=== PATIENT | male | born 1940 | race Caucasian/White ===

== ENCOUNTER 2017-06-30 06:19 | Day surgery (SDC) | payer MEDICARE, OTHER ==
[~2017-06-30] VITALS: Ht 177.8 cm; Wt 69.1 kg
--- NOTE | ~2017-06-30 | OP ---
PATIENT NAME: Scarlett RUIZ MEDICAL RECORD: [id number] :44 LOCATION:D.OPS ADMISSION DATE: SURGEON: ISMAEL LANGLEY DO DATE OF OPERATION: 06/30/2017 PROCEDURE: Colonoscopy with polypectomy. INDICATION FOR PROCEDURE: Screening colonoscopy, history of colon polyps, diverticular disease. SCOPE: Olympus video pediatric colonoscope. MEDICATIONS: Propofol 500 mg IV per anesthesia. WITHDRAWAL TIME: 27 minutes. ESTIMATED BLOOD LOSS: Minimal. COMPLICATIONS: None. FINDINGS: Informed consent was given. The patient was made comfortable with the above medication. After reaching an adequate level of sedation by slow IV push, the patient was placed on his left side. A digital rectal examination was performed and was normal. The endoscope was then advanced under direct visualization through the rectum to the cecum with visualization of the appendiceal orifice and the ileocecal valve. The scope was slowly withdrawn and mucosa was carefully examined. The prep quality was fair. There were 4 polyps visualized on today's examination. The first was a benign-appearing and sessile polyp located in the cecum. It measured approximately 2 mm in diameter. It was removed using cold forceps in one piece and completely retrieved. In the transverse colon, there were 2 separate polyps which were benign appearing and sessile. They ranged in size from 3-5 mm in diameter. One was removed using a hot snare and the other was removed using hot forceps. In the descending colon, there was another benign-appearing and sessile polyp which measured approximately 4 mm in diameter. It was removed using hot forceps in one piece and completely retrieved. There was evidence of diverticula throughout the entire colon. Retroflexion was performed in the rectum with visualization of grade I internal hemorrhoids without bleeding. The endoscope was then withdrawn from the patient. The patient tolerated the procedure well and there were no complications. IMPRESSION: 1. Multiple polyps as described above, removed using a combination of cold forceps, hot forceps, and a hot snare. 2. Pandiverticulosis. 3. Grade I internal hemorrhoids without bleeding. PLAN AND RECOMMENDATIONS: 1. Discharge home when recovery parameters are met. 2. Followup biopsy specimen results. 3. High-fiber diet. 4. Continue current medications. 5. Recall colonoscopy in 3 years. TRANSINT:[id number] Voice Confirmation ID: [id number] DOCUMENT ID: [id number] OPERATIVE REPORT [id number] MEDICA,ISMAEL PAUL DO at 1524 CC: [id number] DICTATION DATE: 06/30/17913 CERTIFIED SURGICAL TECH/FIRST ASSISTANT: 06/30/17 1148 [facility] 06/30/17 [id number] [place] [address]
[2017-06-30] MEDS ORDERED: PROSCAR5 MG PO (06:43)
[2017-06-30] MEDS ORDERED: FUROSEMIDE40 MG PO (06:44)
[2017-06-30] MEDS ORDERED: RENVELA800 MG PO (06:44)
[2017-06-30] MEDS ORDERED: LISINOPRIL5 MG PO (06:45)
[2017-06-30 06:58] VITALS: BP 159/63; Ht 177.8 cm; Wt 69.1 kg
[2017-06-30 07:08] LABS: HEMATOCRIT 43.6 % (42.0-54.0); HEMOGLOBIN 13.8 g/dL (13.5-17.5); MCH 31.3 pg (26.0-34.0); MCHC 31.7 g/dL (31.0-37.0); MCV 98.9 fL (80.0-100.0); MEAN PLATELET VOLUME 11.3 fL (7.4-10.4); RBC 4.41 10x6/uL (4.20-6.10); RDW 13.7 % (11.5-14.5); WBC 6.8 10x3/uL (4.8-10.8)
[2017-06-30 07:09] LABS: ANION GAP 16.6 mmol/L (8-16); CALCIUM 8.5 mg/dL (8.5-10.1); CARBON DIOXIDE 23.2 mmol/L (21.0-32.0); CREATININE - SERUM 6.8 mg/dL (0.6-1.3); POTASSIUM - SERUM 3.8 mmol/L (3.5-5.1)
== END 2017-06-30 10:12 | disposition home or self-care (01) ==
LOC: D.OPS 06:19
PROVIDERS: Anesthesiology
DX: Z12.11 Encounter for screening for malignant neoplasm of colon (principal); K63.5 Polyp of colon; K57.30 Diverticulosis of large intestine without perforation or abscess without bleeding; K64.0 First degree hemorrhoids; Z86.010 Personal history of colon polyps; Z01.812 Encounter for preprocedural laboratory examination

== ENCOUNTER → 2018-09-07 14:41 | Outpatient (CLI) | payer MEDICARE, OTHER ==
[2017-06-30 06:58] VITALS: BMI 21.8
[~2018-09-07 14:41] MED LIST: FUROSEMIDE40 MG PO; LISINOPRIL5 MG PO; PROSCAR5 MG PO; RENVELA800 MG PO
== END | disposition home or self-care (01) ==
LOC: D.RAD 14:41
PROVIDERS: ATTEND Internal Medicine Nephrology
DX: R06.02 Shortness of breath (principal)

== ENCOUNTER → 2019-02-01 07:32 | Outpatient (CLI) | payer MEDICARE, OTHER ==
[2017-06-30 06:58] VITALS: BMI 21.8
== END | disposition home or self-care (01) ==
LOC: D.NM 07:32
PROVIDERS: ATTEND Internal Medicine Nephrology
DX: R93.89 Abnormal findings on diagnostic imaging of other specified body structures (principal); R11.2 Nausea with vomiting, unspecified

== ENCOUNTER → 2019-03-08 13:52 | Outpatient (CLI) | payer MEDICARE, OTHER ==
[2017-06-30 06:58] VITALS: BMI 21.8
== END | disposition home or self-care (01) ==
LOC: D.RAD 13:52
PROVIDERS: ATTEND Internal Medicine Nephrology
DX: R06.02 Shortness of breath (principal); R05 Cough

== ENCOUNTER → 2019-03-25 09:56 | Outpatient (CLI) | payer MEDICARE, OTHER ==
[2017-06-30 06:58] VITALS: BMI 21.8
--- NOTE | ~2019-03-25 | ST ---
PATIENT:Scarlett RUIZ MEDICAL RECORD: [id number] SEX: M LOCATION:[facility] ORDER #: ADMISSION DATE: 03/25/19 AGE OF PATIENT: 79 REFERRING PHYSICIAN: INTERPRETING PHYSICIAN: LUCIA KAPLAN MD DATE OF SERVICE: 03/25/2019 PROCEDURE: Nuclear stress test. INDICATION: Angina, abnormal ECG, hypertension, shortness of breath, lower extremity edema. The patient was exercised on standard Lexiscan protocol with 33 mCi of sestamibi injected at peak stress, 11 mCi used previously for rest images. FINDINGS: Gated SPECT reveals a dilated cardiomyopathy, ejection fraction markedly reduced at 21%. SPECT imaging: Cardiolite was used as myocardial perfusion agent. There is a fixed perfusion defect inferiorly compatible with previous inferior myocardial infarction; however, there is ongoing reversible ischemia anteriorly and laterally. This includes the basal, mid, apical, anterior segments as well as apical lateral, mid lateral, basal lateral segments. The degree of reversibility is moderate. The amount of myocardial involved is a very large between the defects. OVERALL IMPRESSION: This is an abnormal nuclear stress test showing a previous inferior myocardial infarction, but ongoing ischemia anteriorly and laterally suggestive of multivessel coronary artery disease. TRANSINT:[id number] Voice Confirmation ID: [id number] DOCUMENT ID: [id number] LUCIA KAPLAN MD CC: [id number] DICTATION DATE: 03/26/19 1520 COMPUTER ARCHITECT: 03/27/19 0750 DEP CLI 03/25/19 [facility] [address] [place] [address]
== END | disposition home or self-care (01) ==
LOC: D.HCCECHO 09:56
PROVIDERS: ATTEND Internal Medicine Interventional Cardiology
DX: I25.119 Atherosclerotic heart disease of native coronary artery with unspecified angina pectoris (principal)

== ENCOUNTER 2019-04-07 10:02 | Outpatient (CLI) | payer MEDICARE, OTHER ==
[~2019-04-07] VITALS: Ht 177.8 cm; Wt 68.2 kg
--- NOTE | ~2019-04-07 | HEMODYNAMI ---
PATIENT:Scarlett RUIZ MEDICAL RECORD: [id number] : 44 LOCATION:[facility] ADMISSION DATE: 04/07/19 Generatedon:04/07/201914:40 Patient name: Scarlett RUIZ Patient #: [id number] SSN: [id number] : 1940 Date of study: 04/07/2019 Page: Of Hemodynamic Procedure Report Patient Data Patient Demographics Procedure consent was obtained First Name: Scarlett Gender: Male Last Name: JOSEPH : 1940 Middle Initial: JAVIER Age: 79 year(s) Patient #: [id number] Race: Unknown SSN: [id number] Additional ID: [id number] Contact details [address]: [address] [place] [address] State: [place] City: [place] Zip code: [address] Past Medical History Allergies: No known allergies Admission Admission Data Admission Date: 04/07/2019 Admission Time: 10:02 Arrival Date: 04/07/2019 Arrival Time: 0:00 Admit Source: Other Insurance Payor: Private health insurance, Medicare [facility] #: [id number] Height (in.): 69.69 BSA: 1.84 (m2) Height (cm.): 177 BMI: 21.71 (kg/m2) Weight (lbs.): 149.92 Weight (kg.): 68 Lab Results Lab Result Date: 04/07/2019 Lab Result Time: 0:00 Biochemistry Name Units Result Min Max BUN mg/dl 20 --(----)*- 7 18 Creatinine mg/dl 3.2 --(----)-* 0.6 1.3 CBC Name Units Result Min Max Hemoglobin g/dl 11.1 *-(----)-- 13.5 17.5 Procedure Procedure Types Cath Procedure Diagnostic Procedure LHC LH w/Coronaries Sedation Charges Moderate Sedation up to 15 minutes Procedure Description Procedure Date Procedure Date: 04/07/2019 Procedure Start Time: 14:28 Procedure End Time: 14:37 Procedure Staff Name Function Channing Giles MD Performing Physician Alessandra Waggoner RT Monitor Nilam Hancock RN Nurse Sharon Abdi RT Scrub Indication Dyspnea Procedure Data Cath Procedure Fluoroscopy Diagnostic fluoroscopy Total fluoroscopy Time: 0 time: 0 min min Diagnostic fluoroscopy Total fluoroscopy dose: 327 dose: 327 mGy mGy Contrast Material Contrast Material Type Amount (ml) Isovue 300 48 Entry Location Entry Primary Successful Side Size Upsize Upsize Entry Closure Succes sful Closure Location (Fr) 1 (Fr) 2 (Fr) Remarks Device Remarks Femoral Right 5 Fr Exoseal artery Estimated blood loss: 10 ml Diagnostic catheters Device Type Used For End Catheter Placement MULTIPACK JL 4.0 5Fr Procedure catheter MULTIPACK 3DRC 5Fr Procedure catheter MULTIPACK Pigtail 5 Fr Ventriculography catheter Procedure Complications No complications Procedure Medications Medication Administration Route Dosage 0.9% NaCl I.V. 100 ml/hr Oxygen etCO2 Nasal cannula 2 l/min Lidocaine 2% added to field 20 Heparin Flush Bag added to field 2 bags (1000units/500ml NS) Versed I.V. 2 mg Fentanyl I.V. 25 mcg Hemodynamics Rest BSA: 1.84 (m2) O2 Consumption: Estimated: 217.66 (ml/min) O2 Consumption indexed : Estimated:118.29 (ml/min/m) Heart Rate: 80 (bpm) Pressure Samples Time Site Value (mmHg) Purpose Heart Use Rate(bpm) 14:33 LV 132/11,23 Snapshot 80 Gradients Valve Time Site Site Mean SEP/DFP Peak To Heart Use 1 2 (mmHg) (sec/min) Peak Rate (mmHg) (bpm) Aortic 14:34 LV AO 80 Snapshots Pre Cath Intra NCS Post Cath Vital Signs Time Heart Resp SPO2 etCO2 NIBP (mmHg) Rhythm Pain Sedation Rate (ipm) (%) (mmHg) Status Level (bpm) 14:17:04 77 16 100 31.7 122/73(86) NSR 0 (11) 10(A) , No pain 14:21:08 86 20 96 32 122/80(100) NSR 0 (11) 10(A) , No pain 14:25:09 83 25 98 15.8 130/84(112) NSR 0 (11) 10(A) , No pain 14:29:17 81 20 97 30 129/77(112) NSR 0 (11) 10(A) , No pain 14:33:25 75 17 99 29.5 120/79(106) NSR 0 (11) 10(A) , No pain 14:37:28 81 17 99 25.7 122/80(100) NSR 0 (11) 10(A) , No pain Medications Time Medication Route Dose Verified Delivered Reason Notes Eff ectiveness by by 14:14:28 0.9% NaCl I.V. 100 Channing Florencea used for ml/hr ChanAlejo Hancock procedure MD STEWART 14:14:35 Oxygen etCO2 2 Channing Nilam used for Nasal l/min [facility] procedure cannula MD STEWART 14:14:39 Lidocaine 2% added 20ml Channing Snell for local to vial [facility] anesthetic field MD DENG 14:14:46 Heparin Flush added 2 Channing Channing used for Bag to bags [facility] procedure (1000units/500ml field MD DENG NS) 14:18:40 Versed I.V. 2 mg Channing Eastmanyla for [facility] sedation MD STEWART 14:18:47 Fentanyl I.V. 25 Channing Eastmanyla for mcg ChanAlejo Hancock sedation MD STEWARTtin stacker Log Time Note 18:40:47 Patient diabetic? Yes. 14:02:12 Arrival Date: 04/07/2019 12:00:00 AM 14:02:42 Admit Source: Other 14:02:45 Insurance Payor : Private health insurance, Medicare 14:04:59 Patient Height : 69.69 inches 14:05:02 Patient Weight : 149.92 lbs 14:05:30 Lab Result : Creatinine 3.2 mg/dl 14:05:30 Lab Result : BUN 20 mg/dl 14:05:30 Lab Result : Hemoglobin 11.1 g/dl 14:05:40 Diagnostic Cath Status : Elective 14:06:00 Indication : Dyspnea 14:06:14 Procedure Status Elective Heart Cath (OP). 14:06:19 Nilam Hancock RN sent for patient. Start room use. 14:06:30 Time tracking: Regular hours (M-F 7:00 - 5:00) 14:06:34 Plan of Care:Hemodynamics will remain stable., Cardiac rhythm will remain stable., Comfort level will be maintained., Respiratory function will remain adequate., Patient/ family verbilizes understanding of procedure., Procedure tolerated without complication., Recovers from procedure without complications.. 14:06:39 Patient received from Pre/Post Procedure Room to CCL 2 Alert and oriented. Tansferred to table in Supine position. 14:06:42 Signed procedure consent form obtained from patient. 14:06:43 Warm blankets applied, and lorraine hugger turned on for patient comfort. 14:06:44 Correct patient and procedure confirmed by team. 14:06:44 ECG and BP/O2 sat monitors applied to patient. 14:07:03 H&P Date Dictated: 03/16/2019 Within 30 days and on chart.. 14:07:05 Pre-procedure instructions explained to patient. 14:07:07 Family in waiting room. 14:07:09 Patient NPO since Midnight. 14:07:20 Patient allergic to No known allergies 14:07:38 Is patient on blood thinner?No 14:07:44 If diabetic: On Metformin? No 14:07:51 Snore? Yes 14:08:09 Sleep apnea? No 14:08:13 Dentures? No ? 14:08:18 Patient pain scale 0/10 ?. 14:08:33 IV patent on arrival in left forearm with 0.9% NaCl at O. 14:08:37 Lab results completed and on chart. 14:08:56 Stress Test: yes; abnormal multivessel 14:12:09 Risk of Mortality: 1.0 14:12:12 Risk of blood transfusion: 4.2 14:12:15 Risk of CHAPARRO: 9.8 14:12:20 Right groin area was prepped with chlora-prep and draped in sterile fashion 14:12:21 Alarms reviewed by R. N. 14:12:21 Sharps counted by scrub and verified by R.N. 14:12:24 Physician paged 14:14:19 Vital chart was started 14:14:28 0.9% NaCl 100 ml/hr I.V. was administered by Nilam Hancock RN; used for procedure; Verbal order read back and verified. 14:14:35 Oxygen 2 l/min etCO2 Nasal cannula was administered by Nilam Hancock RN; used for procedure; Verbal order read back and verified. 14:14:39 Lidocaine 2% 20ml vial added to field was administered by Channing Giles MD; for local anesthetic; Verbal order read back and verified. 14:14:46 Heparin Flush Bag (1000units/500ml NS) 2 bags added to field was administered by Channing Giles MD; used for procedure; Verbal order read back and verified. 14:16:15 Physician arrived 14:16:15 --------ALL STOP TIME OUT------ 14:16:16 Final Timeout: patient, procedure, and site verified with staff and physician. All members of the team are in agreement. 14:16:18 Right groin site verified by team. 14:16:21 Fire Safety Assessment: A--An alcohol-based skin anteseptic being used preoperatively., C--Open oxygen or nitrous oxide is being used., D--An ESU, laser, or fiber-optic light is being used. 14:16:31 Physical assessment completed. ASA score P 2 - A patient with mild systemic disease as per Channing Giles MD. 14:16:35 4) 15-29 Severley reduced kidney function. 14:16:38 Maximum allowable contrast dose (3.7 X eGFR X 0.75)55 ml. 14:16:43 Sedation plan: IV Moderate Sedation Medication:Versed, Fentanyl 14:16:47 Use device set Femoral Dx 14:16:48 ACIST Syringe (50888) opened to sterile field. 14:16:49 Bag Decanter (2002) opened to sterile field. 14:16:49 Medline Cath Pack ([id number]) opened to sterile field. 14:16:51 ACIST Hand Control (80709) opened to sterile field. 14:16:51 ACIST Manifold (53591) opened to sterile field. 14:16:52 DIAGNOSTIC Multipack 5Fr catheter set (LG7264) opened to sterile field. 14:16:59 EMERALD Guide Wire (508-028) opened to sterile field. 14:17:00 SHEATH 5FR Mineral (JFN405) opened to sterile field. 14:18:40 Versed 2 mg I.V. was administered by Nilam Hancock RN; for sedation; Verbal order read back and verified. 14:18:47 Fentanyl 25 mcg I.V. was administered by Nilam Hancock RN; for sedation; Verbal order read back and verified. 14:28:27 Procedure started. 14:28:27 Full Disclosure recording started 14::35 Local anesthetic to right femoral artery with Lidocaine 2% by Channing Giles MD.INITIAL ACCESS ONLY 14:28:45 A 5 Fr sheath was inserted into the Right Femoral artery 14:30:23 A MULTIPACK JL 4.0 5Fr catheter was advanced over the wire and used for Procedure. 14:30:51 LCA angiography performed. 14:31:18 Catheter removed. 14:31:25 A MULTIPACK 3DRC 5Fr catheter was advanced over the wire and used for Procedure. 14:31:43 RCA angiography performed. 14:32:17 Catheter removed. 14:32:25 A MULTIPACK Pigtail 5 Fr catheter was advanced over the wire and used for Ventriculography. 14:32:32 Zero performed for pressure channel P1 14:34:04 Catheter removed. 14:34:13 EF : 20 % 14:34:15 LV hemodynamics recorded. 14:34:19 EXOSEAL 5Fr (EX500) opened to sterile field. 14:34:20 Tegaderm 4 x 4 (1626W) opened to sterile field. 14:35:09 Sheath removed intact; hemostasis achieved with Exoseal to the Right Femoral artery. 14:35:12 Procedure ended.(Physican Out) 14:35:24 Fluoroscopy time 00.00 minutes. 14:35:28 Fluoroscopy dose: 327 mGy 14:35:28 Flurop Dose total: 327 14:35:32 Dose Area Product 03104 mGy/cm. 14:35:37 Contrast amount:Isovue 300 48ml. 14:35:39 Maximum allowable dose exceeded? No. 14:36:18 Post right femoral artery:stable 14:36:20 Post Procedure Pulses reassessed and unchanged 14:36:33 Post-procedure physical assessment completed. ASA score P 2 - A patient with mild systemic disease as per Channing Giles MD. 14:36:37 Post procedure rhythm: unchanged. 14:36:40 Estimated blood loss: 10 ml 14:36:42 Post procedure instruction explained to patient.Patient verbalizes understanding. 14:36:54 Procedure type changed to Cath procedure, Diagnostic procedure, LHC, LHC w/Coronaries, Sedation Charges, Moderate Sedation up to 15 minutes 14:36:56 Procedure and supply charges have been captured, reviewed, submitted and are correct. 14:37:15 Procedure Complication : No complications 14:37:20 LHC Findings: mild to moderate CAD (<70%) 14:37:22 Operative report dictated upon procedure completion. 14:37:25 Report given to Pre/Post Procedure Room. 14:37:29 Patient transfered to Pre/Post Procedure Room with Stretcher. 14:37:31 Procedure ended. 14:37:31 Full Disclosure recording stopped 14:37:36 End room use (Document Last) 14:40:27 Vital chart was stopped Device Usage Item Name Manufacture Quantity Catalog Hospital Part Current Minimal L ot# / Number Charge Number Stock Stock Serial# Code ACIST Acist 1 36773 685852 369576 [id number] 20 Syringe Medical (66380) Systems Inc Bag Microtek 1 062590 68917 008181 5 Decanter Medical Inc. () Medline Medline 1 [id number] 612941 25199 296246 5 Cath Pack (TVEW02820) ACIST Hand Acist 1 99329 273319 058397 493070 5 Control Medical (88548) Systems Inc ACIST Acist 1 77392 358928 827951 493001 5 Manifold Medical (03100) Systems Inc DIAGNOSTIC Cardinal 1 [id number] 426462 16242 559195 30 Multipack Health 5Fr catheter set (UP0294) EMERALD Cardinal 1 502-455 336739 631861 352828 5 Guide Wire Health (502-455) SHEATH 5FR Terumo 1 OJP907 959875 402285 648803 5 Mineral (PDX843) MULTIPACK Cardinal 1 311210 5 JL 4.0 5Fr Health catheter MULTIPACK Cardinal 1 132178 5 3DRC 5Fr Health catheter MULTIPACK Cardinal 1 180853 5 Pigtail 5 Health Fr catheter EXOSEAL 5Fr Cardinal 1 EX500 664753 957836 272150 10 (EX500) Health Tegaderm 4 3M 1 1626W 382290 576107 702270 5 x 4 (1626W) Signature Audit [place] Stage Time Signature Unsigned Intra-Procedure 04/07/2019 Alessandra Waggoner 2:38:09 PM RT(R) Intra-Procedure 04/07/2019 Nilam Hancock 2:38:38 PM RN Intra-Procedure 04/07/2019 Channing Rice 2:40:26 PM Alejo DENG Signatures Performing Physician : Signature : Channing Giles MD Date : Time : Monitor : Alessandra Edilson Signature : RT Date : Time : Nurse : Nilam Santi RN Signature : Date : Time : [address] [place] [address]
[2019-04-07] MEDS ORDERED: RENAVITE PO (10:39)
[2019-04-07 11:06] VITALS: BP 123/69; Ht 177.8 cm; Wt 68.2 kg
[2019-04-07 11:12] LABS: BASOPHILS 0.5 % (0-2); EOSINOPHILS 0 % (0-7); HEMATOCRIT 35.4 % (42.0-54.0); HEMOGLOBIN 11.1 g/dL (13.5-17.5); IMMATURE GRANULOCYTES 0.5 % (0-5); LYMPHOCYTES 17.3 % (15-50); MCH 33.3 pg (26.0-34.0); MCHC 31.4 g/dL (31.0-37.0); MCV 106.3 fL (80.0-100.0); MEAN PLATELET VOLUME 10.4 fL (7.4-10.4); MONOCYTES 14.5 % (2-11); NEUTROPHILS 67.2 % (40-80); PLATELET COUNT 166 10x3/uL (130-400); RBC 3.33 10x6/uL (4.20-6.10); RDW 14.7 % (11.5-14.5); WBC 4.3 10x3/uL (4.8-10.8)
[2019-04-07 11:17] LABS: ANION GAP 9.4 mmol/L (8-16); CALCIUM 8.9 mg/dL (8.5-10.1); CARBON DIOXIDE 35.1 mmol/L (21.0-32.0); CREATININE - SERUM 3.2 mg/dL (0.6-1.3); POTASSIUM - SERUM 3.5 mmol/L (3.5-5.1)
--- NOTE | 2019-04-07 14:55 | NUR ---
REC TO ROOM VIA STRETCHER. AT BEDSIDE, DR ARMSTRONG HERE SPEAKING W HER. MONITORING INITIATED. R GROIN SOFT, CDI, NO S/S BLEEDING/HEMATOMA. VSS, HR 81 NSR, RR 20, SAT 99%, BP 135/81
--- NOTE | 2019-04-07 15:10 | NUR ---
R GROIN CDI, SOFT. NO S/S BLEEDING/HEMATOMA. BP 134/78, NSR 79, RR 17, SAT 100% ON 2LNC. C/O A LITTLE BIT COLD, COVERED UP WITH WARM BLANKETS.
[2019-04-07] MEDS ORDERED: COREG6.25 MG ×2 (15:11→15:20)
--- NOTE | 2019-04-07 15:25 | NUR ---
R GROIN SOFT, CDI. NO S/S BLEEDING/HEMATOMA. VSS, SEE FLOWSHEET.
--- NOTE | 2019-04-07 15:40 | NUR ---
R GROIN SOFT, CDI. NO S/S BLEEDING/HEMATOMA. PPP. RAISED HOB, PROVIDED TURKEY SANDWICH AND WATER PER PT REQUEST.
--- NOTE | 2019-04-07 15:55 | NUR ---
ELY SANDWICH AND WATER WITHOUT COMPLAINT. DENIES FURTHER NEEDS. R GROIN REMAINS CDI, SOFT, NO S/S BLEEDING OR HEMATOMA.
--- NOTE | 2019-04-07 16:28 | NUR ---
IV DC, TIP INTACT. MONITORING DC. R GROIN CDI. ALLOWED TO DRESS W HELP OF
--- NOTE | 2019-04-07 16:55 | NUR ---
DC INSTRUCTIONS REVIEWED W AND PT. R GROIN REMAINS SOFT, CDI, NO S/S BLEEDING/HEMATOMA. PT DRESSED W 'S HELP. ASSISTED INTO WC AND DC HOME W HER VIA PRIVATE CAR. PT HAS ALL BELONGINGS.
--- NOTE | 2019-04-08 12:06 | OP ---
PATIENT NAME: Scarlett RUIZ MEDICAL RECORD: [id number] :44 LOCATION:D.CAT ADMISSION DATE: SURGEON: AMY ARMSTRONG MD DATE OF OPERATION: 04/07/2019 PROCEDURE: Left heart catheterization, selective coronary angiography, right femoral artery approach. CATHETERS: A 5-Gabonese sheath, 5/4 left and right Wilma, 5/4 pig. The procedure was well tolerated. The patient was returned to the yang. Sheath was removed. ExoSeal device placed. FINDINGS: Left ventriculography in 30-degree BESS view. Severe global hypokinesis and LV function is reduced to 20%. CORONARY ANATOMY: LEFT MAIN: Left main is free of disease. LAD: LAD is free of disease in the diagonal system. CIRCUMFLEX: Small circumflex system with luminal irregularities. RIGHT CORONARY ARTERY: Dominant artery, gives rise to PDA, free of disease. IMPRESSION: Nonischemic cardiomyopathy. We will add carvedilol. Creatinine was somewhat elevated; however, potassium was only at 3.2 could consider addition of Entresto at some point, will need re-measurement of LV function at 3 months to see if device therapy indicated or required. TRANSINT:[id number] Voice Confirmation ID: [id number] DOCUMENT ID: [id number] AMY ARMSTRONG MD at 1206 CC: [id number] DICTATION DATE: 04/07/19 1447 WELDING MANAGER: 04/08/19 0006 DEP CLI 04/07/19 [id number] [place] [address]
== END 2019-04-07 16:55 ==
LOC: D.CATH 10:02
PROVIDERS: ATTEND Internal Medicine Interventional Cardiology
DX: R06.00 Dyspnea, unspecified (principal); R94.31 Abnormal electrocardiogram [ECG] [EKG]; I20.9 Angina pectoris, unspecified; I10 Essential (primary) hypertension; R01.1 Cardiac murmur, unspecified

== ENCOUNTER → 2019-08-10 07:49 | Outpatient (CLI) | payer MEDICARE, OTHER ==
[2019-04-07 11:06] VITALS: BMI 21.5
[~2019-08-10 07:49] MED LIST changes: +COREG6.25 MG; +RENAVITE PO
--- NOTE | 2019-08-11 08:24 | EC ---
PATIENT:Scarlett RUIZ DATE OF SERVICE: 08/10/19 SEX: M MEDICAL RECORD: [id number] DATE OF : 44 [facility] AGE OF PATIENT: 79 ADMISSION DATE: 08/10/19 REFERRING PHYSICIAN: INTERPRETING PHYSICIAN: AMY ARMSTRONG MD ECHOCARDIOGRAM REPORT ECHO CHARGES 4 ECHO COMPLETE Date: 08/10/19 CLINICAL DIAGNOSIS: CARDIOMYOPATHY H/O HTN ECHOCARDIOGRAPHIC MEASUREMENTS (adult normal given) AC root (d.<3.7cm) 3.8 cm LV Septum d (<1.2 cm> 1.5 cm Valve Excursion 2.2 cm LV Septum (systole) 2.4 cm Left Atria (s.<4.0cm> 4.8 cm LVPW d(<1.2cm) 1.2 cm RV (d.<2.3cm) 3.3 cm LVPW (sytole) 1.6 cm LV diastole(<5.6CM) 7.1 cm MV E-F(>70mm/sec) cm LV systole 5.0 cm LVOT Diameter 2.2 cm MV exc.(>10mm) cm Est.ejection fraction (50-75%) % DOPPLER: LVIT cm/sec A 39.0 cm/sec E 66.0 cm/sec LA cm/sec RVSP 17.2 mmHg LVOT 70.0 cm/sec AOP1/2T m/s Asc. Ao 148 cm/sec RVOT 55.0 cm/sec RA cm/sec PA 89.0 cm/sec AV Gradient Peak 8.8 mmHg AV Mean 3.7 mmHg AV Area 1.9 cm MV Gradient Peak 3.1 mmHg MV Mean 1.0 mmHg MV Area cm COMMENTS: OP - HC Gas Appliance Mechanic: 1 SHRAVAN AKILA Dry Color Mixer: 3 Dr. Reis TAPE# PACS Pericardial Effusion N DATE OF SERVICE: Adequate 2D, color flow imaging, spectral Doppler, and M-Mode. LVH is present. LV internal dimension is dilated. LV is globally hypokinetic with reduced EF, estimated EF 40%. Aortic valve is sclerosed without stenosis by Doppler interrogation. Left atrium is dilated at 4.8 cm. Mitral valve shows no prolapse. Moderate MR. Right-sided chambers are grossly normal. Trace TR. TRANSINT:[id number] Voice Confirmation ID: [id number] DOCUMENT ID: [id number] ECHOCARDIOGRAM REPORT [id number] MEDICA,Scarlett ARMSTRONG,AMY Macedo MD at 0824 CC: [id number] DICTATION DATE: 08/10/191452 CAFE AIDE: 08/10/192130 DEP CLI 08/10/19 [id number] [place] [id number]
== END | disposition home or self-care (01) ==
LOC: D.HCCECHO 07:49
PROVIDERS: ATTEND Internal Medicine Interventional Cardiology
DX: I42.9 Cardiomyopathy, unspecified (principal)

== ENCOUNTER → 2019-11-29 10:39 | Outpatient (CLI) | payer MEDICARE, OTHER ==
[2019-04-07 11:06] VITALS: BMI 21.5
== END | disposition home or self-care (01) ==
LOC: D.RAD 10:39
PROVIDERS: ATTEND Internal Medicine
DX: R06.02 Shortness of breath (principal)

== ENCOUNTER 2020-01-04 11:22 | Day surgery (SDC) | payer MEDICARE, OTHER ==
[~2020-01-04] VITALS: Ht 177.8 cm; Wt 69.9 kg
--- NOTE | ~2020-01-04 | HEMODYNAMI ---
PATIENT:Scarlett RUIZ MEDICAL RECORD: [id number] : 44 LOCATION:[facility] ADMISSION DATE: 01/04/20 Generatedon:01/04/202013:30 Patient name: Scarlett RUIZ Patient #: [id number] SSN: [id number] : 1940 Date of study: 01/04/2020 Page: Of Hemodynamic Procedure Report Patient Data Patient Demographics Procedure consent was obtained First Name: Scarlett Gender: Male Last Name: JOSEPH : 1940 Middle Initial: JAVIER Age: 79 year(s) Patient #: [id number] Race: Unknown SSN: [id number] Additional ID: [id number] Contact details Address: [address] [place] [address] State: [place] City: [place] Zip code: [address] Past Medical History Allergies Allergen Reaction Date Comments Reported Augmentin 01/04/2020 Admission Admission Data Admission Date: 01/04/2020 Admission Time: 11:22 Height (in.): 60 BSA: 1.68 (m2) Height (cm.): 152.4 BMI: 30.47 (kg/m2) Weight (lbs.): 156 Weight (kg.): 70.76 Lab Results Lab Result Date: 01/04/2020 Lab Result Time: 0:00 Biochemistry Name Units Result Min Max BUN mg/dl 50 --(----)-* 7 18 Creatinine mg/dl 6.1 --(----)-* 0.6 1.3 eGFR ml/min 10 *-(----)-- 90 120 NONAFRICAN CBC Name Units Result Min Max Hematocrit % 36.1 *-(----)-- 42 54 Hemoglobin g/dl 11.6 *-(----)-- 13.5 17.5 Procedure Procedure Types Cath Procedure Diagnostic Procedure ZAHEER Procedure Description Procedure Date Procedure Date: 01/04/2020 Procedure Start Time: 13:18 Procedure End Time: 13:28 Procedure Staff Name Function Channing Giles MD Performing Physician Mimi Hernandez RT Monitor Bethany Gomez RN Nurse Urszula Deutsch Tobacco Drummer Procedure Data Cath Procedure Fluoroscopy Diagnostic fluoroscopy Total fluoroscopy Time: 0 time: 0 min min Diagnostic fluoroscopy Total fluoroscopy dose: 0 dose: 0 mGy mGy Estimated blood loss: 0 ml Procedure Complications No complications Procedure Medications Medication Administration Route Dosage Oxygen etCO2 Nasal cannula 2 l/min Hurricaine Gem P.O. 1 Sprays Fentanyl I.V. 50 mcg Versed I.V. 1 mg Fentanyl I.V. 50 mcg Versed I.V. 1 mg Hemodynamics Rest BSA: 1.68 (m2) HGB: 11.6 (g/dl) O2 Consumption: Estimated: 191.16 (ml/min) O2 Consumption indexed: Estimated:113.79 (ml/min/m) Heart Rate: 68 (bpm) Snapshots Pre Cath Intra NCS Post Cath Vital Signs Time Heart Resp SPO2 etCO2 NIBP (mmHg) Rhythm Pain Sedation Rate (ipm) (%) (mmHg) Status Level (bpm) 13:15:23 81 19 99 30 136/67(112) NSR 0 (11) 10(A) , No pain 13:19:41 71 22 95 30 140/71(122) NSR 0 (11) 10(A) , No pain 13:24:01 72 20 96 21 144/73(131) NSR 0 (11) 9(A) , No pain 13:28:19 72 14 96 29.3 142/83(126) NSR 0 (11) 10(A) , No pain Medications Time Medication Route Dose Verified Delivered Reason Notes Effectiv eness by by 13:18:26 Oxygen etCO2 2 Channing Sims used for Nasal l/min St Alejo Gomez RN procedure cannula 13:18:35 Hurricaine P.O. 1 Channing Sims Per Gem Sprays St Alejo Gomez RN physician 13:18:45 Versed I.V. 1 mg [address] for [facility] Alejo Gomez RN sedation 13:18:47 Fentanyl I.V. 50 mcg Channing Sims for St Alejo Gomez RN sedation 13:21:49 Fentanyl I.V. 50 mcg Channing Sims for [facility] Alejo Gomez RN sedation 13:21:55 Versed I.V. 1 mg [address] for [facility] Alejo Gomez RN sedation Procedure Log Time Note 12:58:41 Informed consent obtained and on chart 13:00:57 Procedure Status ZAHEER. 13:00:58 Time tracking: Regular hours (M-F 7:00 - 5:00) 13:01:02 Plan of Care:Hemodynamics will remain stable., Cardiac rhythm will remain stable., Comfort level will be maintained., Respiratory function will remain adequate., Patient/ family verbilizes understanding of procedure., Procedure tolerated without complication., Recovers from procedure without complications.. 13:01:08 H&P Date Dictated: 12/24/2019 Within 30 days and on chart., H&P Addendum completed by physician on day of procedure. (MUST COMPLETE FOR ALL OUTPATIENTS). 13:01:11 Bethany Gomez RN sent for patient. Start room use. 13:01:27 Patient allergic to Augmentin 13:02:17 Lab Result : BUN 50 mg/dl 13:02:17 Lab Result : eGFR NONAFRICAN 10 ml/min 13:02:17 Lab Result : Creatinine 6.1 mg/dl 13:02:17 Lab Result : Hematocrit 36.1 % 13:02:17 Lab Result : Hemoglobin 11.6 g/dl 13:02:39 Patient Weight : 156 lbs 13:02:57 Patient Height : 60 inches 13:10:11 Patient arrived from Pre/Post Procedure Room to [facility] 1. Patient remains on bed/stretcher for procedure. 13:10:12 Warm blankets applied, and lorraine hugger turned on for patient comfort. 13:10:12 Correct patient and procedure confirmed by team. 13:10:13 Vital chart was started 13:10:15 Pre-procedure instructions explained to patient. 13:10:16 Pre-op teaching completed and patient verbalized understanding. 13:10:17 Family in patients room. 13:10:19 Full Disclosure recording started 13:15:03 ECG and BP/O2 sat monitors applied to patient. 13:15:10 Rhythm: sinus rhythm 13:15:19 Baseline sample Acquired. 13:15:24 Is the patient allergic to Iodine/contrast media? No. 13:15:26 Is patient on blood thinner?No 13:15:29 Patient diabetic? Yes. 13:15:42 DIET CONROLLED DIABETES 13:15:46 Previous problem with sedation/anesthesia?ANSETHETIC GASES? 13:16:03 Snore? Yes 13:16:05 Sleep apnea? No 13:16:06 Deviated septum? No 13:16:07 Opens mouth fully? Yes 13:16:08 Sticks out tongue? Yes 13:16:10 Airway obstruction? No ? 13:16:11 Dentures? No ? 13:16:15 Patient pain scale 0/10 ?. 13:16:21 IV patent on arrival in right hand with 0.9% NaCl at [facility]. 13:16:24 Lab results completed and on chart. 13:16:28 Sharps counted by scrub and verified by R.N. 13:16:29 Alarms reviewed by R. N. 13:17:02 --------ALL STOP TIME OUT------ 13:17:03 Final Timeout: patient, procedure, and site verified with staff and physician. All members of the team are in agreement. 13:17:05 Fire Safety Assessment: C--Open oxygen or nitrous oxide is being used. 13:17:08 Physical assessment completed. ASA score P 2 - A patient with mild systemic disease as per Channing Giles MD. 13:17:22 5) <15 or on dialysis Very severe, or end stage kidney failure. 13:17:26 Sedation plan: IV Moderate Sedation Medication:Versed, Fentanyl 13:17:46 Urszula [facility] present for ZAHEER. 13:18:26 Oxygen 2 l/min etCO2 Nasal cannula was administered by Bethany Gomez RN; used for procedure; Verbal order read back and verified. 13:18:35 Hurricaine Gem 1 Sprays P.O. was administered by Bethany Gomez RN; Per physician; Verbal order read back and verified. 13:18:45 Versed 1 mg I.V. was administered by Bethany Gomez RN; for sedation; Verbal order read back and verified. 13:18:47 Fentanyl 50 mcg I.V. was administered by Bethany Gomez RN; for sedation; Verbal order read back and verified. 13:18:48 Procedure started. 13:19:57 ZAHEER started. 13:21:49 Fentanyl 50 mcg I.V. was administered by Bethany Gomez RN; for sedation; Verbal order read back and verified. 13:21:55 Versed 1 mg I.V. was administered by Bethany Gomez RN; for sedation; Verbal order read back and verified. 13:24:09 ZAHEER completed. 13:24:28 Procedure ended.(Physican Out) 13:25:29 Fluoroscopy time 00.00 minutes. 13::31 Fluoroscopy dose: 0 mGy 13:: Flurop Dose total: 0 13:25:33 Dose Area Product 0 mGy/cm. 13:25:39 Post-procedure physical assessment completed. ASA score P 2 - A patient with mild systemic disease as per Channing Giles MD. 13:25:41 Post procedure rhythm: sinus rhythm 13::43 Estimated blood loss: 0 ml 13:25:45 Post procedure instruction explained to patient.Patient verbalizes understanding. 13:25:45 Patient needs reinforcement of post procedure teaching. 13:26:36 Procedure and supply charges have been captured, reviewed, submitted and are correct. 13:26:39 Procedure Complication : No complications 13:27:19 Operative report dictated upon procedure completion. 13:27:19 See physician's report for complete and final results. 13:28:02 ZAHEER Findings: other (see operative note) 13:28:09 Report given to Pre/Post Procedure Room. 13:28:12 Patient transfered to Pre/Post Procedure Room with Bed. 13:28:33 Vital chart was stopped 13:28:35 Procedure ended. 13:28:35 Full Disclosure recording stopped 13:28:44 End room use (Document Last) 13:29:44 End room use (Document Last) 13:30:14 End room use (Document Last) Signature Audit [place] Stage Time Signature Unsigned Intra-Procedure 01/04/2020 Mimi Hernandez 1:29:44 PM RT(R) Intra-Procedure 01/04/2020 Bethany Gomez RN 1:30:14 PM Intra-Procedure 01/04/2020 Channing Rice 1:30:34 PM Alejo [address] [place] [id number] [place] [address]
--- NOTE | ~2020-01-04 | TEE ---
PATIENT:Scarlett RUIZ MEDICAL RECORD: [id number] [facility] AGE OF PATIENT: 79 ADMISSION DATE: 01/04/20 SEX: M REFERRING PHYSICIAN: INTERPRETING PHYSICIAN: AMY ARMSTRONG MD TRANSESOPHAGEAL ECHOCARDIOGRAM Date: 01/04/20 ZAHEER CHARGE Y INDICATIONS: CARDIOMYOPATHY PREMEDICATIONS: PATIENT'S RESPONSE PROCEDURE DOPPLER MEASUREMENTS: LVIT LA PA RA LVOT RVOT Asc. Ao AV Gradient Peak AV Mean AV Area MV Gradient Peak MV Mean MV Area INTERPRETATION: Doppler: 2-D: COLOR FLOW DOPPLER NORMAL SALINE STUDY: MISCELLANOUS: DIAGNOSIS: PLAN: Proof Reader:3 Dr. Reis Customs Agent: Evangelina RAMON COMMENTS: PACS DATE OF SERVICE: 01/04/2020 PROCEDURE: Transesophageal Note DESCRIPTION OF PROCEDURE: After general sedation with Versed and fentanyl, transesophageal Omniplane probe was easily passed into the distal esophagus and proximal stomach without difficulty. FINDINGS: No LVH. LV internal dimension are dilated. LV wall motion is TRANSESOPHAGEAL ECHOCARDIOGRAM REPORT [id number] Scarlett RUIZ severely decreased, overall EF 15% to 20%. Aortic valve is tricuspid with good valve excursion. No significant AI. Left atrium appears dilated. Left atrial appendage is well visualized with good contractility and no evidence of thrombus. Mitral valve appears normal with mild plus MR. RV internal dimensions appear normal. Right-sided chambers appear dilated. Moderate TR by color flow imaging. At the end of procedure, transesophageal Omniplane probe was turned posteriorly and this showed minimal atherosclerotic debris in the descending aorta. During the procedure, the patient was monitored continuously with pulse oximetry, telemetry, and noninvasive blood pressure monitoring. TRANSINT:[id number] Voice Confirmation ID: [id number] DOCUMENT ID: [id number] AMY ARMSTRONG MD CC: [id number] DICTATION DATE: 01/04/20 1328 CUSTOMS AGENT: 01/05/20 0515 [facility] SDC 01/04/20 [place] [address]
[2020-01-04] MEDS ORDERED: COREG6.25 MG PO (11:36)
[2020-01-04] MEDS ORDERED: RENA-VITE TABL0.8 MG PO (11:38)
[2020-01-04] MEDS ORDERED: FLOMAX0.4 MG PO (11:39)
[2020-01-04 11:57] VITALS: BP 146/74; Ht 177.8 cm; Wt 69.9 kg
[2020-01-04 12:12] LABS: ANION GAP 13.8 mmol/L (8-16); CALCIUM 9.5 mg/dL (8.5-10.1); CARBON DIOXIDE 27.1 mmol/L (21.0-32.0); CREATININE - SERUM 6.1 mg/dL (0.6-1.3); POTASSIUM - SERUM 3.9 mmol/L (3.5-5.1)
[2020-01-04 12:13] LABS: BASOPHILS 0.5 % (0-2); EOSINOPHILS 0 % (0-7); HEMATOCRIT 36.1 % (42.0-54.0); HEMOGLOBIN 11.6 g/dL (13.5-17.5); LYMPHOCYTES 13.2 % (15-50); MCH 33.8 pg (26.0-34.0); MCHC 32.1 g/dL (31.0-37.0); MCV 105.2 fL (80.0-100.0); MONOCYTES 14.8 % (2-11); NEUTROPHILS 71.5 % (40-80); PLATELET COUNT 163 10x3/uL (130-400); RBC 3.43 10x6/uL (4.20-6.10); RDW 13.9 % (11.5-14.5); WBC 5.8 10x3/uL (4.8-10.8)
[2020-01-04] MEDS ORDERED: FARXIGA10 MG PO (13:39)
--- NOTE | 2020-01-04 13:40 | NUR ---
PT ARRIVED BY STRETCHER. PLACED ON MONITORS. ASSESSMENT COMPLETED. VSS AT THIS TIME. CALL LIGHT WITHIN REACH. FAMILY AT BEDSIDE.
--- NOTE | 2020-01-04 13:55 | NUR ---
PT RESTING COMFORTABLY. VSS. CALL LIGHT WITHIN REACH. NO NEEDS AT THIS TIME.
--- NOTE | 2020-01-04 14:26 | NUR ---
PT ALERT AND AWAKE. NO S/S OF DISTRESS NOTED. PIV D/C'D WITH CATH TIP INTACT. TOLERATED WELL. PT INSTRUCTED TO GET UP AND DRESSED AT THIS TIME. AT BEDSIDE TO ASSIST.
--- NOTE | 2020-01-04 14:35 | NUR ---
PT AMBULATED TO RESTROOM. VOIDED WITHOUT DIFFICULTY. STEADY GAIT NOTED.
--- NOTE | 2020-01-04 14:40 | NUR ---
DISCUSSED DISCHARGE INSTRUCTIONS WITH PT AND PT'S FAMILY. THEY VOICED UNDERSTANDING. INFORMATION SHEET GIVEN TO PT REGARDING FARXIGA. PT'S WENT TO CLINIC AND PICKED UP SAMPLES.
--- NOTE | 2020-01-04 14:45 | NUR ---
PT TAKEN TO VEHICLE BY WHEELCHAIR. NO S/S OF DISTRESS NOTED. ALL BELONGINGS AND PAPERWORK IN HAND.
== END 2020-01-04 14:45 | disposition home or self-care (01) ==
LOC: D.CATH 11:22
PROVIDERS: ATTEND Internal Medicine Interventional Cardiology
DX: I42.0 Dilated cardiomyopathy (principal); R06.00 Dyspnea, unspecified; R06.09 Other forms of dyspnea; I34.0 Nonrheumatic mitral (valve) insufficiency